=== PATIENT | female | born 1995 | race Caucasian/White ===

== ENCOUNTER 2024-08-05 17:40 | Emergency (ER) | payer OTHER, SELFPAY ==
[2024-08-05 18:09] LABS: HCG, Serum Qualitative Screen Negative
[2024-08-05 18:12] LABS: ALT (SGPT) 17 U/L (0-35); AST (SGOT) 28 U/L (14-36); Albumin 4.7 g/dl (3.5-5.0); Alkaline Phosphatase 73 U/L (38-126); Blood Urea Nitrogen 13 mg/dl (7-17); Calcium 9.8 mg/dl (8.4-10.2); Carbon Dioxide 23 mmol/L (22-30); Chloride 100 mmol/L (98-107); Glucose 114 mg/dl (70-99); Potassium 4.1 mmol/L (3.5-5.1); Sodium 138 mmol/L (135-145); Total Bilirubin 1.7 mg/dl (0.2-1.3); Total Protein 7.4 g/dl (6.3-8.2); eGFR > 60.00
[2024-08-05 18:20] LABS: Urine Albumin Trace (Neg - Trace); Urine Bilirubin Negative (Negative); Urine Character Very Cloudy (Clear); Urine Color Yellow; Urine Glucose Negative (Negative); Urine Ketone Negative (Negative); Urine Leukocyte 2+ (Negative); Urine Nitrite Positive (Negative); Urine Occult Blood 2+ (Negative); Urine Specific Gravity 1.015 (<1.030); Urine Urobilinogen Negative (Neg - 1+)
[2024-08-05 18:39] LABS: % Basophils 0.4 % (0-2); % Eosinophils 0.2 % (0-6); % Immature Granulocytes 0.3 % (0-0.5); % Lymphocytes 9.4 % (20.5-51.1); % Neutrophils 82.7 % (42.2-75.2); Absolute Basophils 0.1 10^3/uL (0-0.2); Absolute Lymphocytes 1.2 10^3/uL (1.2-3.4); Absolute Monocytes 0.9 10^3/uL (0.1-0.6); Absolute Neutrophils 10.8 10^3/uL (1.4-6.5); Hematocrit 37.3 % (37.0-47.0); Hemoglobin 13.9 g/dL (12.0-16.0); Mean Corp Hgb Conc. 37.3 g/dL (33.0-37.0); Mean Corpuscular Hgb 30.2 pg (27.0-31.0); Mean Corpuscular Volume 81.1 fL (81.0-99.0); Mean Platelet Volume 9.4 fL (7.4-10.4); Nucleated Red Blood Cells % 0 %; Platelet Count 290 10^3/uL (130-400); Red Cell Dist. Width 13.7 % (11.5-14.5)
[2024-08-05 18:45] LABS: Urine Bacteria Moderate (Negative); Urine White Cell 30-40 /HPF (0-5)
[2024-08-05 19:45] VITALS: BMI 28.5
[2024-08-05 19:49] VITALS: BP 132/72
--- NOTE | 2024-08-05 19:56 | ED.GENMED ---
Addendum entered and electronically signed by Omar Kern PA-C 08/07/24 06:58:
Urine culture shows greater than 100,000 colony-forming units of E. coli. This is preliminary result. Sensitivities pending. On Keflex
Original Note:
History of Present Illness
General
Chief Complaint: Abdominal Pain
Source: patient
Time Seen by Provider: 08/05/24 19:44
History of Present Illness
History of Present Illness:
29-year-old female presents to the emergency room complaining of left lower abdominal pain and left flank pain. Pain has been present for the past 4 to 5 days. She has had subjective fever. She went to urgent care today she was found have a
temperature 101. She had urine which did positive but the patient is taking Azo and therefore her urine was very orange. Patient sent to the emergency room for further evaluation. Patient feels like she is urinating frequently unable to empty her
bladder.
Past History
Past History
ED Past Medical History: Other (Concussion)
ED Past Surgical History: None
Social History
Tobacco: Non-smoker
Alcohol: Occasional
Drug: None
Personal: Single
Living: with family
Phy Exam
Physical Exam
Physical Exam:
General: Awake, Alert, Oriented X3. No acute distress.
Vitals: Low-grade fever, heart rate in the 100s
Head: Atraumatic
Eyes: Pupils equal, EOMI
Throat: Airway intact, no exudates
Neck: Trachea midline
Lungs: Clear and equal b/l
Heart: Regular rate, no murmurs
Abd: Soft, Nontender, No pulsatile mass
Back: Mild bilateral CVA tenderness to percussion
Neuro: Nonfocal
Skin: Warm, dry, no rash
Extremities: pulses equal b/l, no edema
Course
Orders/Labs/Results
Orders:
Orders
08/05/24 17:46
Test Result ONCE
08/05/24 17:49
Complete Blood Count/With Diff Urgent
Comprehensive Metabolic Panel Urgent
HCG, Serum Qualitative Screen Urgent
08/05/24 17:53
Urinalysis Reflex To Culture Urgent
Date Specimen was Collected: 08/05/24
Time Specimen was Collected: 17:46
Urine Microscopic Reflex Cult Urgent
Urine Culture Urgent
RAJANI Source: U
Specimen Description:
Date Specimen was Collected: 08/05/24
Time Specimen was Collected: 17:46
08/05/24 19:55
Kidney & Bladder US [US Renal With Bladder] Urgent
Comment:
Reason For Exam: left flank pain, eval for stone/hydro
08/05/24 21:35
CefTRIAXone [Rocephin] 1,000 mg IV NOW STA
08/05/24 21:44
Cephalexin Monohydrate [Keflex] 500 mg PO NOW STA
Abnormal Lab Results
08/05/24 08/05/24
17:49 17:53
WBC 13.0 H 10^3/uL
(4.8-10.8)
MCHC 37.3 H g/dL
(33.0-37.0)
Absolute Neuts (auto) 10.8 H 10^3/uL
(1.4-6.5)
Absolute Monos (auto) 0.9 H 10^3/uL
(0.1-0.6)
Neutrophils % 82.7 H %
(42.2-75.2)
Lymphocytes % 9.4 L %
(20.5-51.1)
Glucose 114 H mg/dl
(70-99)
Total Bilirubin 1.7 H mg/dl
(0.2-1.3)
Ur Occult Blood Reflex 2+ A
(Negative)
Urine Nitrite (Reflex) Positive A
(Negative)
Leukocyte Esterase Rfl 2+ A
(Negative)
Urine RBC 7-10 A /HPF
(0-2)
Urine WBC (Reflex) 30-40 A /HPF
(0-5)
Urine Bacteria (Reflex) Moderate A
(Negative)
08/05/24 17:49
08/05/24 17:49
Vital Signs
Initial and Last Documented VS:
Initial Vital Signs
Pulse Ox
97
08/05/24 19:47
Last Documented Vital Signs
Temp BP Pulse Ox
100.5 F H 128/53 97
08/05/24 19:50 08/05/24 21:05 08/05/24 21:06
MDM/Problems Addressed
Differential Diagnosis Includes:
Cystitis, pyelonephritis, kidney stone
MDM/Problems Addressed:
Patient declines Tylenol. Patient presents with flank pain, fever, nausea. Urine highly suggestive of urinary tract infection. Ultrasound obtained to exclude obstructing stone and there is no evidence for this. Will treat the patient with oral
antibiotics as she is tolerating oral intake and is motivated to be treated at home. Understands she should return if she is feeling much worse or not feeling better after a couple days of antibiotics.
*Radiology
Radiology exam reviewed: radiology read reviewed
*Pulse Oximetry
Patient hypoxic: no
*Critical Care Note
Total Time (30-74mins, 75-104mins- exclusive of procedures): Not Applicable
ED Attending Note
-
Portions of this chart may have been created with voice recognition software.� Occasional wrong word or��sound alike� substitutions may have occurred due to the inherent limitations of voice recognition software.
Discharge Plan
Departure
Patient Disposition: Home (Routine Discharge)
Date of Disposition: 08/05/24
Time of Disposition: 21:37
Patient with high blood pressure during this ER visit?: Yes
Condition: Good
Discharge Problem:
Pyelonephritis
Instructions: Urinary Tract Infection, Adult ED
Prescriptions:
New
cephalexin 500 mg capsule
500 mg PO BID Qty: 20 0RF
Referrals:
Grzegorz Mckeon DO [Family Provider] -
Interventions
Interventions:
*Risk Screen - Suicide Last Done: 08/05/24 19:45
*General Assessment Last Done: 08/05/24 19:45
*Neglect/Abuse Screening Last Done: 08/05/24 19:45
ED- Fall Risk Assessment Last Done: 08/05/24 21:47
*ED COVID-19 Vaccine History Last Done: 08/05/24 19:45
*Nursing Disposition Last Done: 08/05/24 21:47
AW-Hnyfnl-Dtzglxulju Assessment Last Done: 08/05/24 19:45
Discharge Date and Time
Discharge Date/Time: 08/05/24 21:48
Print Language: ITALIAN
[2024-08-05 20:00] VITALS: BP 127/74
[2024-08-05 20:04] VITALS: BP 127/74
[2024-08-05 21:05] VITALS: BP 128/53
[2024-08-05] MEDS: KEFLEX 500 MG PO (21:46)
== END 2024-08-05 21:48 | disposition home or self-care (01) ==
LOC: EMR 17:40
PROVIDERS: Emergency Medicine; EMERGENCY PHYSICIAN Emergency Medicine; FAMILY PHYSICIAN Family Medicine
DX: N12 Tubulo-interstitial nephritis, not specified as acute or chronic (principal)
CPT/HCPCS: 99284; 76770; 80053; 81003; 81015; 84703; 85025; 87086; 87088; 87186